=== PATIENT | female | born 2000 | race Two or more races ===

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

== ENCOUNTER 2023-05-24 15:07 | Emergency (ER) | payer BC, SELFPAY ==
[2023-05-24 15:42] VITALS: BP 121/75; PULSE 94; RESP 18; TEMP 36.8; O2SAT 100
--- NOTE | 2023-05-24 17:15 | ED.URI ---
HPI - URI/Sore Throat General Chief Complaint: Upper Respiratory Infection Stated Complaint: cold symptoms Time Seen by Provider: 05/24/23 17:16 Source: patient, RN notes reviewed and old records reviewed Mode of arrival: ambulatory Limitations: no limitations History of Present Illness HPI Narrative: 22year old female who presents to [facility] care with complaints of 4 day history of cough, chest congestion, nasal congestion, ear pressure. Patient reports no recent fevers, has been taking Mucinex and some Tylenol for her symptoms. Patient does have history of Crohns and is on Remicade infusions. Patient reports that she is expectorating some yellow tinged phlegm. MD elicited complaint: fever (fever at start of symptoms.), cough, nasal congestion and other (chest congestion ear pressure) Pertinent past history: immunosuppression Severity: mild Treatments prior to arrival: acetaminophen and other (Mucinex) Related Data Home Medications Medication Instructions Recorded Confirmed esomeprazole magnesium 40 mg 1 cap PO DAILY 10/14/21 05/24/23 capsule,delayed release infliximab 100 mg intravenous 100 mg IV Q5W 10/14/21 05/24/23 solution (Remicade) famotidine 20 mg tablet 20 mg PO DAILY 05/24/23 05/24/23 Allergies Allergy/AdvReac Type Severity Reaction Status Date / Time No Known Allergies Allergy Verified 05/24/23 16:00 Review of Systems Review of Systems: CONSTITUTIONAL: Denies malaise, chills, sweats,initially fever. EYES: Denies visual changes, redness, or discharge. ENT: Reports rhinorrhea, congestion, sinus pain, otalgia and initially sore throat. CARDIOVASCULAR: Denies chest pain, palpitations, or edema. RESPIRATORY: Reports cough.? Denies dyspnea. GASTROINTESTINAL: Denies abdominal pain, nausea, vomiting, diarrhea SKIN: Denies rash or itching. MUSCULOSKELETAL: reports myalgia. NEUROLOGIC: Reports some headache. All systems reviewed & are unremarkable except as noted in HPI and below PMFSH Past Medical History Medical History (Updated 05/26/23 @ 11:13 by Lalita Fuller NP) Crohn's disease not affecting current episode of care GERD (gastroesophageal reflux disease) Social History Social History (Updated 05/26/23 @ 11:09 by Lalita Fuller NP) Smoking status: Never smoker Alcohol intake: unknown Substance use type: does not use Living arrangements: with family Gender identity (if verbalized by the patient): Female Comments At time of signature, agree with nursing past medical, surgical, social and family history. There is no relevant family history pertinent to the presenting complaint Exam Narrative: GENERAL: Well-appearing, well-nourished, and in no acute distress. HEAD: Normocephalic EYES: PERRLA, conjunctivae clear ENT: Nares clear, turbinates edematous and erythematous, clear discharge. Mucous membranes moist. TM pearly [place] with dull light reflex bilaterally; no tragal tenderness. Oropharynx erythematous without lesions. Tonsils not enlarged and without exudate, no drooling, no hoarseness, no trismus, uvula midline.post nasal drainage NECK: Supple. No lymphadenopath CHEST: Clear to auscultation, breath sounds equal. No wheezing, rhonchi, rales, or stridor. No respiratory distress, speaks in full sentences.SAO2 100% on room air HEART: Regular rate and rhythm. No murmur heard. SKIN: Warm, dry, no rash. NEURO: Alert and oriented x3. PSYCH: Normal mood and affect Course Course Emergency Course: Patient is aware of diagnosis, understands and agrees to treatment plan.? Anticipatory guidance given.? Patient agrees to follow-up as directed and is aware of reasons to seek care at the emergency department. Portions of this record may have been created with voice recognition software Level of Care: Express Care Visit Vital Signs Vital signs: Vital Signs Temperature 36.8 C 05/24/23 15:42 Pulse Rate 94 05/24/23 15:42 Respiratory Rate
== END 2023-05-24 17:30 | disposition home or self-care (01) ==
PROVIDERS: Emergency Provider Registered Nurse
DX: U07.1 COVID-19 (principal); K50.90 Crohn's disease, unspecified, without complications; K21.9 Gastro-esophageal reflux disease without esophagitis; Z20.822 Contact with and (suspected) exposure to COVID-19
CPT/HCPCS: 87081; 87426; 87804; 87880; 99213; G0463